=== PATIENT | female | born 1960 | race Caucasian/White ===

== ENCOUNTER 2025-03-20 13:56 | Emergency (ER) | payer OTHER, MEDICARE, BC | END 2025-03-20 15:26 | disposition home or self-care (01) | LOC: DL.ED 13:56 | DX: S06.0XAA Concussion with loss of consciousness status unknown, initial encounter (principal); V49.49XA Driver injured in collision with other motor vehicles in traffic accident, initial encounter; Y93.89 Activity, other specified | CPT/HCPCS: 70450; 99284 ==